=== PATIENT | female | born 1995 | race Caucasian/White ===

== ENCOUNTER 2021-05-19 15:07 | Emergency (ER) | payer OTHER ==
[~2021-05-19 15:07] MED LIST: BUPRENORPHINE HC8 MG PO; COLACE 100MG C100 MG PO; IBUPROFEN600 MG PO
[2021-05-19] MEDS ORDERED: ZYRTEC10 MG PO (16:52)
[2021-05-19] MEDS ORDERED: PREDNISONE 20 M20 MG PO (16:52)
[2021-05-19] MEDS ORDERED: PEPCID20 MG PO (16:52)
== END 2021-05-19 17:03 | disposition home or self-care (01) ==
LOC: ER1 15:07
DX: T78.40XA Allergy, unspecified, initial encounter (principal); F17.200 Nicotine dependence, unspecified, uncomplicated; Z88.8 Allergy status to other drugs, medicaments and biological substances
CPT/HCPCS: 96374; 96375; 99282; J1200; J2930

== ENCOUNTER 2021-07-01 11:49 | Emergency (ER) | payer BC, OTHER ==
[~2021-07-01 11:49] MED LIST changes: +PEPCID20 MG PO; +PREDNISONE 20 M20 MG PO; +ZYRTEC10 MG PO
[2021-07-01 13:10] LABS: HEMOGLOBIN 14.5 gm/dl (12.3-15.3); RED BLOOD COUNT 5.1 M/UL (4.00-5.10); WHITE BLOOD COUNT 9.5 K/UL (4.5-11.0)
[2021-07-01 13:39] LABS: BUN/CREATININE RATIO 17 (0-10)
[2021-07-01] MEDS ORDERED: COLACE100 MG PO (18:47)
[2021-07-01] MEDS ORDERED: ONDANSETRON ODT4 MG SL (18:47)
[2021-07-01] MEDS ORDERED: NAPROSYN500 MG PO (18:47)
[2021-07-01] MEDS ORDERED: CEPHALEXIN500 MG PO (18:53)
== END 2021-07-01 19:30 | disposition home or self-care (01) ==
LOC: ER1 11:49
DX: K59.00 Constipation, unspecified (principal); N39.0 Urinary tract infection, site not specified; N89.8 Other specified noninflammatory disorders of vagina; F17.200 Nicotine dependence, unspecified, uncomplicated; Z90.89 Acquired absence of other organs; Z88.5 Allergy status to narcotic agent; Z79.899 Other long term (current) drug therapy
CPT/HCPCS: 80053; 81001; 83690; 84703; 85025; 87086; 87210; 96372; 96374; 96375; 99284; J1885; J2212; J2405; Q9967